=== PATIENT | female | born 1995 | race African-American/Black ===

== ENCOUNTER 2016-06-22 08:52 | Emergency (ER) | payer MEDICAID ==
[~2016-06-22] VITALS: Ht 175.3 cm; Wt 75.0 kg
[~2016-06-22 08:52] MED LIST: PREN0.01 PO; ZOFR4TAB3 SL
[2016-06-22 08:54] VITALS: BP 120/69; PULSE 81; RESP 12; TEMP 98.5; O2SAT 99
--- NOTE | 2016-06-22 09:15 | PD ---
HPI Chief Complaint: ENT Complaint Time Seen by Provider: 09:15 Travel History International Travel<30 days: No Contact w/Intl Traveler<30days: No Traveled to known affect area: No History of Present Illness HPI 20-year-old female presents to the emergency Department with complaint of sore throat since last night. Denies unusual joint, lump in throat, difficulty swallowing. Reports painful swallowing. Reports burning sensation. Reports nasal congestion and cough. Does not of she's had a fever, but states she feels hot. Reports nasal congestion, headache, feeling nauseated without vomiting. Denies shortness of breath, difficulty breathing. Has not taken any medications or tried any treatments to be her symptoms. No one else sick like her. No known allergies. No significant past medical history. No other modifying factors or associated signs and symptoms. PFSH Past Medical History Medical History: Denies Significant Hx Hx Anticoagulant Therapy: No Cardiovascular Problems: No Chemotherapy: No Cerebrovascular Accident: No Diabetes: No Diminished Hearing: No Respiratory: No Immunizations Current: Yes ?: Not : 1 Para: 1 Past Surgical History Hysterectomy: No Social History Alcohol Use: No Tobacco Use: No Substance Use: No Allergies-Medications (Allergen,Severity, Reaction): Coded Allergies: No Known Allergies (Unverified , 06/22/16) Reported Meds & Prescriptions Reported Meds & Active Scripts Active Magic Mouthwash Adult Liq (Multi-Ingredient Mouthwash/Gargle) 120 Ml Susp 5 Ml SWISH-SPIT Q3HR PRN Each 5 mL contains: Nystatin 200,000 units, Diphenhydramine 4.25 mg, Viscous Lidocaine 10 mg, Duff syrup 0.8 mL Ibuprofen 800 Mg Tab 800 Mg PO Q6HR PRN Review of Systems Except as stated in HPI: all other systems reviewed are Neg Physical Exam Narrative GENERAL: Well-nourished, well-developed female patient, in no acute distress; afebrile, nontoxic-appearing SKIN: Warm and dry. No rash. HEAD: Atraumatic. Normocephalic. EYES: Pupils equal and round. No scleral icterus. No injection or drainage. ENT: Mucosa pink and dry. Pharynx with 2+ tonsils; with erythema and edema; without exudate. No Uvular edema. No uvular, palatal, or tonsillar deviation. Airway patent. EARS: Bilateral pinnae and external canals appear within normal limits. Bilateral tympanic membranes without erythema, dullness or perforation.. NECK: Trachea midline. No Anterior cervical lymphadenopathy and tenderness. CARDIOVASCULAR: Regular rate and rhythm. No murmur appreciated. RESPIRATORY: No accessory muscle use. Clear to auscultation. Breath sounds equal bilaterally. GASTROINTESTINAL: Abdomen soft, non-tender, nondistended. Hepatic and splenic margins not palpable. Bowel sounds are active 4 quadrants. MUSCULOSKELETAL: No obvious deformities. No clubbing. No cyanosis. No edema. NEUROLOGICAL: Awake and alert. Oriented 3. No obvious cranial nerve deficits. Motor grossly within normal limits. Normal speech. Moves all extremities. PSYCHIATRIC: Appropriate mood and affect; insight and judgment normal. Data Data Last Documented VS Vital Signs Date Time Temp Pulse Resp B/P Pulse Ox O2 Delivery O2 Flow Rate FiO2 06/22/16 08:54 98.5 81 12 120/69 99 Room Air Orders Group A Rapid Strep Screen (06/22/16 09:17) Ibuprofen (Motrin) (06/22/16 09:30) Strep Culture (Group A) (06/22/16 09:30) MDM Medical Decision Making Medical Screen Exam Complete: Yes Emergency Medical Condition: Yes Medical Record Reviewed: Yes Differential Diagnosis Viral illness, strep pharyngitis, viral pharyngitis Narrative Course 20-year-old female with cough, congestion, sore throat since last night. Denies unusual drooling, lump in throat, difficulty swallowing. Using Centor score for management of sore throat the patient's risk of GABHS pharyngitis is Score 1=risk of GABHS 5-10%=option to perform rapid strep swab. Ibuprofen administered in the ER. Rapid strep ordered. 1002: Rapid strep negative. Suspecting viral illness. Magic Mouthwash and ibuprofen prescribed for home. Patient is medically cleared and stable for discharge. Discussed reasons to return to the emergency department. Instructed patient to follow up with primary care provider. Patient agrees with treatment plan. The patients vital signs are stable and the patient is stable for outpatient follow-up and treatment. Patient discharged home, stable and in no acute distress. Diagnosis Primary Impression: Viral illness Referrals: Primary Care Physician Patient Instructions: Cold Symptoms (ED), General Instructions, Pharyngitis (ED ), Safe Use of Cough and Cold Medicines (ED) Departure Forms: Tests/Procedures, Work Release Enter return to work date: Jun 23, 2016 Additional Instructions: Get plenty of sleep/rest Rest your voice Drink plenty of fluids to prevent dehydration Use warm saltwater gargles to soothe throat pain Use an air humidifier/turn off ceiling fans Use throat lozenges as needed for sore throat Use ibuprofen or acetaminophen as needed and as directed to relieve pain and fever Follow-up with your primary care provider within 2-4 days Return immediately to the emergency department Med/Other Pt SpecificInfo: Prescription(s) given Scripts Lfqddhge-Hvaxylsvaoiacqt-Hqlqyqzyn Liq (Magic Mouthwash Adult Liq)120 Ml Susp5 Ml SWISH-SPIT Q3HR PRN (SORE THROAT) #120 ML Ref 0 Each 5 mL contains: Nystatin 200,000 units, Diphenhydramine 4.25 mg, Viscous Lidocaine 10 mg, Duff syrup 0.8 mL Prov:Jessica Medellin 06/22/16 Ibuprofen 800 Mg [id number] Mg PO Q6HR PRN (PAIN) #30 TAB Ref 0 Prov:Jessica Medellin 06/22/16 Disposition: 01 DISCHARGE HOME Condition: Stable Jessica Medellin Jun 22, 2016 09:15
[2016-06-22] MEDS ORDERED: MAGICADU2 SWISH-SPIT (09:29)
[2016-06-22] MEDS ORDERED: IBUP800T23 PO (09:29)
[2016-06-22] MEDS ORDERED: IBUPROFEN 800 MG TAB PO ONE (09:30)
== END 2016-06-22 10:14 | disposition home or self-care (01) ==
LOC: NEPB 08:52
DX: B34.9 Viral infection, unspecified (principal)
CPT/HCPCS: 87081; 87880; 99283

== ENCOUNTER 2016-09-07 20:34 | Emergency (ER) | payer MEDICAID ==
[~2016-09-07] VITALS: Ht 175.3 cm; Wt 78.0 kg
[~2016-09-07 20:34] MED LIST changes: +IBUP800T23 PO; +MAGICADU2 SWISH-SPIT; -PREN0.01 PO; -ZOFR4TAB3 SL
[2016-09-07 20:36] VITALS: BP 141/82; PULSE 81; RESP 16; TEMP 97.9; O2SAT 98
[2016-09-07] MEDS ORDERED: DICL75TA PO (21:07)
[2016-09-07] MEDS ORDERED: MAGICADU2 SWISH-SPIT (21:07)
[2016-09-07] MEDS ORDERED: PENI500T PO (21:07)
--- NOTE | 2016-09-07 21:07 | PD ---
HPI Chief Complaint: Oral / Dental Pain or Problem Time Seen by Provider: 21:00 Travel History International Travel<30 days: No Contact w/Intl Traveler<30days: No Traveled to known affect area: No History of Present Illness HPI 20-year-old female presents for evaluation of dental pain. Symptoms started 4 days ago. The pain is a throbbing pain that is constant, localized to left mandibular third molar, radiates to the left side of the face. She has been using zvvh-ovt-wtqduvy NSAIDs but symptoms persist which prompted evaluation. Denies any dental trauma. Denies any tobacco use. She has no other complaints at this time. [facility] Past Medical History Medical History: Denies Significant Hx Hx Anticoagulant Therapy: No Cardiovascular Problems: No Chemotherapy: No Cerebrovascular Accident: No Diabetes: No Diminished Hearing: No Respiratory: No Immunizations Current: Yes ?: Not LMP: LAST WEEK : 1 Para: 1 Past Surgical History Surgical History: No Previous Surgery Hysterectomy: No Social History Alcohol Use: No Tobacco Use: No Substance Use: No Allergies-Medications (Allergen,Severity, Reaction): Coded Allergies: No Known Allergies (Unverified , 09/07/16) Reported Meds & Prescriptions Reported Meds & Active Scripts Active Magic Mouthwash Adult Liq (Multi-Ingredient Mouthwash/Gargle) 120 Ml Susp 10 Ml SWISH-SPIT ACHS Each 5mL contains: Nystatin 200,000units, Diphenhydramine 4.25mg, Viscous Lidocaine 10mg, Duff syrup 0.8 mL Penicillin V Potassium 500 Mg Tab 500 Mg PO Q8H [address] (Diclofenac Sodium) 75 Mg Tabdr 75 Mg PO BID 7 Days Review of Systems General / Constitutional: No: Fever, Chills HENT: Positive: Dental Difficulties Physical Exam Narrative GENERAL: Well-developed well-nourished female in no acute distress SKIN: Warm and dry. HEAD: Atraumatic. Normocephalic. EYES: Pupils equal and round. No scleral icterus. No injection or drainage. ENT: No nasal bleeding or discharge. Mucous membranes pink and moist. The left mandibular third molars impacted and somewhat decayed. The surrounding gumline is mildly erythematous. There is no trismus or sublingual edema. No stridor or drooling. NECK: Trachea midline. No JVD. No lymphadenopathy or submandibular edema. CARDIOVASCULAR: Regular rate and rhythm. No murmur appreciated. RESPIRATORY: No accessory muscle use. Clear to auscultation. Breath sounds equal bilaterally. Data Data Last Documented VS Vital Signs Date Time Temp Pulse Resp B/P Pulse Ox O2 Delivery O2 Flow Rate FiO2 09/07/16 20:36 97.9 81 16 141/82 98 Room Air Orders Ice/Cold Pack (09/07/16 21:05) Acetamin-Codeine 300-30 Mg (Tylenol-Code (09/07/16 21:15) MDM Medical Decision Making Medical Screen Exam Complete: Yes Emergency Medical Condition: Yes Medical Record Reviewed: Yes Differential Diagnosis Impacted third molar, dental caries, pericoronitis, periodontal abscess Narrative Course 20-year-old female presents with dental pain. Examination reveals an impacted third molar in the left mandibular side with some evidence of decay. Plan is to discharge the patient with a short course of NSAIDs, penicillin and have her follow up with a dentist for definitive treatment. Diagnosis Primary Impression: Impacted third molar tooth Additional Instructions: Medication as prescribed. Follow up with a dentist for definitive therapy. Return for any emergent medical conditions. Med/Other Pt SpecificInfo: Prescription(s) given Scripts Ktvkxhuo-Xffphrfeaibqtrg-Bxfdblgzo Liq (Magic Mouthwash Adult Liq)120 Ml Susp10 Ml SWISH-SPIT ACHS #120 ML Ref 1 Each 5mL contains: Nystatin 200,000units, Diphenhydramine 4.25mg, Viscous Lidocaine 10mg, Duff syrup 0.8 mL Prov:William Singh MD 09/07/16 Penicillin V Potassium 500 Mg [id number] Mg PO Q8H 7 Days Ref 0 Prov:William Singh MD 09/07/[address] 75 Mg Tabdr75 Mg PO BID 7 Days Ref 0 Prov:William Singh MD 09/07/16 Disposition: 01 DISCHARGE HOME Condition: Stable Isaias Gandhi Sep 07, 2016 21:07
[2016-09-07] MEDS ORDERED: ACETAMINOPHEN/CODEINE 300 MG/30 MG TAB PO ONE (21:15)
== END 2016-09-07 21:43 | disposition home or self-care (01) ==
LOC: NETRI 20:34
DX: K01.1 Impacted teeth (principal)
CPT/HCPCS: 99282

== ENCOUNTER 2017-03-10 18:37 | Emergency (ER) | payer MEDICAID ==
[~2017-03-10] VITALS: Ht 170.2 cm; Wt 75.0 kg
[~2017-03-10 18:37] MED LIST changes: +DICL75TA PO; -IBUP800T23 PO; +PENI500T PO
[2017-03-10 18:38] VITALS: BP 128/78; PULSE 91; RESP 14; TEMP 98.1; O2SAT 99
[2017-03-10] MEDS ORDERED: FAMOTIDINE 20 MG TAB PO ONE (20:30)
[2017-03-10] MEDS ORDERED: methylPREDNISolone SOD SUCC 125 MG/2 ML VIAL IM ONE (20:30)
[2017-03-10] MEDS ORDERED: RANI150T PO (20:38)
[2017-03-10] MEDS ORDERED: MEDR4PAK PO (20:38)
[2017-03-10] MEDS ORDERED: TRIAM.1%T TOPICAL (20:38)
--- NOTE | 2017-03-10 20:38 | PD ---
HPI Chief Complaint: Skin Problem Time Seen by Provider: 20:23 Travel History International Travel<30 days: No Contact w/Intl Traveler<30days: No Traveled to known affect area: No History of Present Illness HPI Patient is a 21 year-old female who presented to the emergency department evaluation of allergic reaction. Patient states she had a hair extensions placed 1 week ago, 3-4 days after they were placed she began to have a rash break out around her hairline and the upper part of her back and neck. States it's itchy and burning. Patient had her hair extensions removed today. She denies any other complaints at this time. PFSH Past Medical History Medical History: Denies Significant Hx Hx Anticoagulant Therapy: No Cardiovascular Problems: No Chemotherapy: No Cerebrovascular Accident: No Diabetes: No Diminished Hearing: No Respiratory: No Immunizations Current: Yes ?: Not : 1 Para: 1 Past Surgical History Hysterectomy: No Social History Alcohol Use: No Tobacco Use: No Substance Use: No Allergies-Medications (Allergen,Severity, Reaction): Coded Allergies: No Known Allergies (Unverified , 09/07/16) Reported Meds & Prescriptions Reported Meds & Active Scripts Active Magic Mouthwash Adult Liq (Multi-Ingredient Mouthwash/Gargle) 120 Ml Susp 10 Ml SWISH-SPIT ACHS Each 5mL contains: Nystatin 200,000units, Diphenhydramine 4.25mg, Viscous Lidocaine 10mg, Duff syrup 0.8 mL Penicillin V Potassium 500 Mg Tab 500 Mg PO Q8H [address] (Diclofenac Sodium) 75 Mg Tabdr 75 Mg PO BID 7 Days Review of Systems Except as stated in HPI: all other systems reviewed are Neg Skin: Positive Rash, Positive Itching Physical Exam Narrative GENERAL: Well-developed, well-nourished, alert female. Resting comfortably in no acute distress. SKIN: Warm and dry. Fine macular rash on forehead, nape of neck, upper shoulders, ears. No erythema or exudate noted. HEAD: Normocephalic. EYES: No scleral icterus. No injection or drainage. NECK: Supple, trachea midline. No JVD or lymphadenopathy. CARDIOVASCULAR: Regular rate and rhythm without murmurs, gallops, or rubs. RESPIRATORY: Breath sounds equal bilaterally. No accessory muscle use. GASTROINTESTINAL: Abdomen soft, non-tender, nondistended. MUSCULOSKELETAL: No cyanosis, or edema. BACK: Nontender without obvious deformity. No CVA tenderness. Data Data Last Documented VS Vital Signs Date Time Temp Pulse Resp B/P (MAP) Pulse Ox O2 Delivery O2 Flow Rate FiO2 03/10/17 18:38 98.1 91 14 128/78 (95) 99 Orders Orders Methylprednisolone So Succ Inj (Solumedr (03/10/17 20:30) Famotidine (Pepcid) (03/10/17 20:30) [facility] Medical Decision Making Medical Screen Exam Complete: Yes Emergency Medical Condition: Yes Interpretation(s) Vital Signs Date Time Temp Pulse Resp B/P (MAP) Pulse Ox O2 Delivery O2 Flow Rate FiO2 03/10/17 18:38 98.1 91 14 128/78 (95) 99 Differential Diagnosis Contact dermatitis versus allergic reaction versus less likely anaphylaxis versus other Narrative Course Patient presented for evaluation of itchy, burning rash that occurred after she had hair extensions placed. Extensions were removed today. Patient's vital signs are stable, airway is patent and there is no wheezing noted on exam. Reaction is isolated to the skin that was in contact with the hair extensions. Patient will be given dose of Solu-Medrol and famotidine in the emergency department. She'll be given a prescription for oral steroids at home. Patient encouraged to be cautious with any further hair extensions. She is encouraged to follow-up with her primary doctor, alternatively she can return to emergency department for any new or worsening symptoms. She verbalized understanding of instructions. Patient stable for discharge. Diagnosis Primary Impression: Contact dermatitis Qualified Codes: L24.5 - Irritant contact dermatitis due to other chemical products Referrals: Primary Care Physician Patient Instructions: Contact Dermatitis (ED), General Instructions Additional Instructions: Be cautious with any further hair extensions due to possible worsening allergic reaction the future. Take medications as directed Follow-up with her primary doctor Return to emergency department for any new or worsening symptoms Med/Other Pt SpecificInfo: Prescription(s) given Scripts Triamcinolone Topical (Triamcinolone Topical) 0.1 % Oint 1 APPLIC TOPICAL BID for Inflammation for 5 Days, #60 GM 0 Refills Prov: Yenny Mendez 03/10/17 Ranitidine (Ranitidine) 150 Mg Tab 150 MG PO BID for Heartburn Management, #20 TAB 0 Refills Prov: Yenny Mendez 03/10/17 Methylprednisolone Dosepak (Medrol Dosepak) 4 Mg Dspk 4 MG PO DIRECTED, #1 DSPK 0 Refills Per Pharmacist direction Prov: Yenny Mendez 03/10/17 Disposition: 01 DISCHARGE HOME Condition: Stable Yenny Mendez Mar 10, 2017 20:38
== END 2017-03-10 21:01 | disposition home or self-care (01) ==
LOC: NEPD 18:37
DX: L24.5 Irritant contact dermatitis due to other chemical products (principal)
CPT/HCPCS: 99284; J2930